=== PATIENT | male | born 1955 | race Caucasian/White ===

== ENCOUNTER 2017-12-26 10:45 | Observation (INO) | payer SELFPAY ==
[2017-12-26] VITALS (12 sets, daily range): BP systolic 158–227; BP diastolic 68–120; PULSE 55–67; RESP 16–18; TEMP 96.8–98.3; O2SAT 93–98
[~2017-12-26] VITALS: Ht 177.8 cm; Wt 147.2 kg
[~2017-12-26 10:45] MED LIST: LORT5TAB PO; Z.0.NO CURRENT MEDS
[2017-12-26] MEDS ORDERED: ASPI-516 CHEW (11:07)
[2017-12-26] MEDS ORDERED: LISI10TA3 PO (11:07)
[2017-12-26] MEDS ORDERED: ASPIRIN 81 MG CHEW TAB PO ONE (11:30)
[2017-12-26] MEDS ORDERED: SODIUM CHLORIDE 0.9% FLUSH 10 ML FLUSH IVF PRN (11:30)
[2017-12-26 11:50] LABS: AUTOMATED NEUTROPHIL # 6.9 TH/MM3 (1.8-7.7); BASOPHIL # 0.1 TH/MM3 (0-0.2); BASOPHIL % 1.3 % (0.0-2.0); EOSINOPHIL # 0.4 TH/MM3 (0-0.4); HEMATOCRIT 53.7 % (39.0-51.0); HEMOGLOBIN 18.1 GM/DL (13.0-17.0); LYMPH % 16.9 % (9.0-44.0); LYMPHOCYTE # 1.6 TH/MM3 (1.0-4.8); MEAN CELL VOLUME 94.3 FL (80.0-100.0); MEAN CORPUSCULAR HEMOGLOBIN 31.7 PG (27.0-34.0); MEAN CORPUSCULAR HGB CONC 33.6 % (32.0-36.0); MEAN PLATELET VOLUME 8.5 FL (7.0-11.0); MONO % 6.6 % (0.0-8.0); MONOCYTE # 0.6 TH/MM3 (0-0.9); NEUT % 71.2 % (16.0-70.0); PLATELET COUNT 260 TH/MM3 (150-450); RED BLOOD COUNT 5.69 MIL/MM3 (4.50-5.90); RED CELL DISTRIBUTION WIDTH 13.2 % (11.6-17.2); WHITE BLOOD COUNT 9.6 TH/MM3 (4.0-11.0)
--- NOTE | 2017-12-26 11:54 | RADRPT ---
EXAM DATE/TIME: 12/26/2017 11:39 [facility] COMPARISON: No previous studies available for comparison. INDICATIONS : Chest pain since last night. Left side numbness for a month. MEDICAL HISTORY : Hypertension. Diabetes. CVA. SURGICAL HISTORY : Appendectomy. ENCOUNTER: Initial ACUITY: 2 days PAIN SCORE: 2/10 LOCATION: Bilateral chest FINDINGS: A single view of the chest demonstrates the lungs to be symmetrically aerated without evidence of mas s, infiltrate or effusion. The cardiomediastinal contours are unremarkable. Old fractures of the rib s bilaterally. CONCLUSION: No acute disease. Christos Majano MD on December 26, 2017 at 11:49 Board Certified Radiologist. This report was verified electronically.
--- NOTE | 2017-12-26 11:55 | PD ---
HPI Chief Complaint: Chest Pain Time Seen by Provider: 11:01 Travel History International Travel<30 days: No Contact w/Intl Traveler<30days: No Traveled to known affect area: No History of Present Illness HPI Patient is a 62 year old man presenting with left sided numbness and chest pain. He describes it as a constant pressure on his left chest that does not radiate. He says this is different than the chest pain he has been having for several months which is sharp and lasts for 10-15 seconds and would occur at rest several times per day. His chest pain is worse with exertion and he is also more short of breath when at rest and with exertion. He denies a history of any previous MIs. The numbness on his entire left side started about a month and a half ago. He also feels cold on his left side. He thinks it is becoming more difficult to walk. He says that this has happened to him in 2010 when his left side became numb for about 1 year but then it resolved. He never saw a doctor during that episode. He does not have a primary care doctor and he has not had insurance which is why he doesn't seek medical care often. The only medication he takes at home is Lisinopril which he does not take regularly and a baby aspirin. Other medical history is unknown to the patient due to lack of follow up care. He has smoked a pack and a half of cigarettes per day since he was 15. He drinks 4 16 ounces beers every day. He is also complaining of left sided groin pain. He says it is worse when he bends down or when he applies pressure to the area. States his been going on for some time, no nausea no vomiting no injury reported. States symptoms are moderate, left chest, no radiation, associated signs symptoms and context as above. PFSH Past Medical History Cerebrovascular Accident: Yes (possible) Diabetes: Yes (possible) Patient Takes Glucophage: No Diminished Hearing: No Hypertension: Yes Tetanus Vaccination: Unknown Influenza Vaccination: No ?: Not Past Surgical History Appendectomy: Yes Social History Alcohol Use: Yes (4 beers/day) Tobacco Use: Yes (11/28 PPD) Substance Use: No Allergies-Medications (Allergen,Severity, Reaction): Coded Allergies: No Known Allergies (Verified Allergy, Unknown, 12/26/17) Reported Meds & Prescriptions Reported Meds & Active Scripts Active Reported Aspirin 81 Mg Chew 81 Mg CHEW DAILY Lisinopril 10 Mg Tab 10 Mg PO DAILY Review of Systems Except as stated in HPI: all other systems reviewed are Neg Physical Exam Narrative GENERAL: Patient is in no acute distress SKIN: Warm and dry. HEAD: Atraumatic. Normocephalic. EYES: Pupils equal and round. No scleral icterus. No injection or drainage. ENT: No nasal bleeding or discharge. Mucous membranes pink and moist. NECK: Trachea midline. No JVD. CARDIOVASCULAR: Regular rate and rhythm. Dorsalis pedis pulse 2+. RESPIRATORY: No accessory muscle use. Clear to auscultation. Breath sounds equal bilaterally. GASTROINTESTINAL: Abdomen soft, nondistended. Hepatic and splenic margins not palpable. Left lower groin is minimally tender to superficial palpation, no hernias felt. No rebound no percussive tenderness in the abdomen. Abdomen is obese but benign. MUSCULOSKELETAL: Extremities without clubbing, cyanosis, or edema. No obvious deformities. NEUROLOGICAL: Awake and alert. No obvious cranial nerve deficits. Motor grossly within normal limits. Five out of 5 muscle strength in the arms and legs. Normal speech. PSYCHIATRIC: Appropriate mood and affect; insight and judgment normal. Data Data Last Documented VS Vital Signs Date Time Temp Pulse Resp B/P (MAP) Pulse Ox O2 Delivery O2 Flow Rate FiO2 12/26/17 13:52 63 168/98 (121) 96 12/26/17 10:57 98.3 16 Orders Orders Electrocardiogram (12/26/17 11:16) Basic Metabolic Panel (Bmp) (12/26/17 11:16) Complete Blood Count With Diff (12/26/17 11:16) Magnesium (Mg) (12/26/17 11:16) Prothrombin Time / Inr (Pt) (12/26/17 11:16) Act Partial Throm Time (Ptt) (12/26/17 11:16) Troponin I (12/26/17 11:16) Chest, Single Ap (12/26/17 11:16) Ecg Monitoring (12/26/17 11:16) Iv Access Insert/Monitor (12/26/17 11:16) Oximetry (12/26/17 11:16) Oxygen Administration (12/26/17 11:16) Aspirin Chew (Aspirin Chew) (12/26/17 11:30) Sodium Chloride 0.9% Flush (Ns Flush) (12/26/17 11:30) Ct Brain W/O Iv Contrast(Rout) (12/26/17 ) Admit Order (Ed Use Only) (12/26/17 ) Labs Laboratory Tests Test 12/26/17 11:00 12/26/17 12:51 White Blood Count 9.6 TH/MM3 Red Blood Count 5.69 MIL/MM3 Hemoglobin 18.1 GM/DL Hematocrit 53.7 % Mean Corpuscular Volume 94.3 FL Mean Corpuscular Hemoglobin 31.7 PG Mean Corpuscular Hemoglobin Concent 33.6 % Red Cell Distribution Width 13.2 % Platelet Count 260 TH/MM3 Mean Platelet Volume 8.5 FL Neutrophils (%) (Auto) 71.2 % Lymphocytes (%) (Auto) 16.9 % Monocytes (%) (Auto) 6.6 % Eosinophils (%) (Auto) 4.0 % Basophils (%) (Auto) 1.3 % Neutrophils # (Auto) 6.9 TH/MM3 Lymphocytes # (Auto) 1.6 TH/MM3 Monocytes # (Auto) 0.6 TH/MM3 Eosinophils # (Auto) 0.4 TH/MM3 Basophils # (Auto) 0.1 TH/MM3 CBC Comment AUTO DIFF Differential Comment AUTO DIFF CONFIRMED Platelet Estimate NORMAL Platelet Morphology Comment NORMAL Erythrocyte Sedimentation Rate 1 mm/hr Prothrombin Time 10.3 SEC Prothromb Time International Ratio 1.0 RATIO Activated Partial Thromboplast Time 30.1 SEC Blood Urea Nitrogen 8 MG/DL Creatinine 0.91 MG/DL Random Glucose 125 MG/DL Calcium Level 8.4 MG/DL Magnesium Level 2.1 MG/DL Sodium Level 133 MEQ/L Potassium Level 4.3 MEQ/L Chloride Level 100 MEQ/L Carbon Dioxide Level 27.9 MEQ/L Anion Gap 5 MEQ/L Estimat Glomerular Filtration Rate 84 ML/MIN Troponin I LESS THAN 0.02 NG/ML MDM Medical Decision Making Medical Screen Exam Complete: Yes Emergency Medical Condition: Yes Differential Diagnosis ACS, AMI, chest pain, left-sided weakness, acute stroke unlikely, chronic stroke possibility, prediabetes, diabetic neuropathy. Narrative Course Patient roomed emergency department, initial workup with chest x-ray CT head EKG and blood work is unremarkable, discussed with him that given his risk factors would recommend admission for observation status to the hospital he is agreeable. Discussed with Dr. Hawthorne the symptoms including chest pain in the chronic left-sided weakness, she is agreeable for observation status. Diagnosis Primary Impression: Chest pain Additional Impression: Left-sided weakness Admitting Information Admitting Physician Requests: Observation Condition: Stable Benji Zeepda MD Dec 26, 2017 11:55
[2017-12-26 12:01] LABS: PROTHROMBIN TIME - PATIENT 10.3 SEC (9.8-11.6)
--- NOTE | 2017-12-26 12:45 | RADRPT ---
EXAM DATE/TIME: 12/26/2017 12:07 [facility] COMPARISON: No previous studies available for comparison. INDICATIONS : Left extremity weakness. RADIATION DOSE: 57.59 CTDIvol (mGy) MEDICAL HISTORY : Hypertension. SURGICAL HISTORY : None. ENCOUNTER: Initial ACUITY: 2 months PAIN SCALE: 0/10 LOCATION: cranial TECHNIQUE: Multiple contiguous axial images were obtained of the head. Using automated exposure control and adj ustment of the mA and/or kV according to patient size, radiation dose was kept as low as reasonably a chievable to obtain optimal diagnostic quality images. DICOM format image data is available electro nically for review and comparison. FINDINGS: CEREBRUM: There is mild generalized atrophy. Ventricles are normal in size. No evidence of midline shift, mass lesion, hemorrhage or acute infarction. No extra-axial fluid collections are seen. POSTERIOR FOSSA: The cerebellum and brainstem demonstrate no acute finding. The 4th ventricle is midline. The cerebe llopontine angle is unremarkable. EXTRACRANIAL: There is a partially visualized soft tissue density structure in the right maxillary antrum measuring 2.6 cm. SKULL: The calvaria is intact. No evidence of skull fracture. CONCLUSION: 1. No acute intracranial abnormality is identified. 2. Partially visualized soft tissue density structure/mass in the right maxillary sinus measuring malia roximately 2.6 cm. On an elective basis consider further evaluation of this nonacute finding with sin us CT. Reynaldo Hughes MD on December 26, 2017 at 12:41 Board Certified Radiologist. This report was verified electronically.
[2017-12-26 13:05] LABS: CHLORIDE 100 MEQ/L (98-107); SODIUM (NA) 133 MEQ/L (136-145)
[2017-12-26 13:08] LABS: BICARBONATE 27.9 MEQ/L (21.0-32.0); CALCIUM 8.4 MG/DL (8.5-10.1); GLUCOSE,RANDOM 125 MG/DL (74-106); MAGNESIUM 2.1 MG/DL (1.5-2.5)
[2017-12-26 13:09] LABS: BLOOD UREA NITROGEN 8 MG/DL (7-18)
[2017-12-26 13:12] LABS: CREATININE 0.91 MG/DL (0.60-1.30); GLOMERULAR FILTRATION RATE 84 ML/MIN (>89)
[2017-12-26 13:17] LABS: TROPONIN I LESS THAN 0.02 NG/ML (0.02-0.05)
[2017-12-26] MEDS ORDERED: NITROGLYCERIN 0.4 MG SL 25 TABS/BTL SL PRN (16:15)
[2017-12-26] MEDS ORDERED: SODIUM CHLORIDE 0.9% FLUSH 10 ML FLUSH IV FLUSH PRN (16:15)
[2017-12-26] MEDS ORDERED: ONDANSETRON HCL 4 MG/2 ML VIAL IV PUSH PRN (16:15)
[2017-12-26] MEDS ORDERED: TEMAZEPAM 15 MG CAP PO PRN (16:15)
[2017-12-26] MEDS ORDERED: ACETAMINOPHEN/HYDROcodone 325 MG/7.5 MG TAB PO PRN (16:15)
[2017-12-26] MEDS ORDERED: ACETAMINOPHEN 500 MG CPLT PO PRN (16:15)
--- NOTE | 2017-12-26 16:21 | HHI.HP ---
[facility] No Primary Care Physician Admission Diagnosis Chest Pain Diagnoses: (1) Chest pain Diagnosis: Principal (2) Left-sided weakness Diagnosis: Principal (3) Ataxia Diagnosis: Principal Chief Complaint: Chest pain Travel History International Travel<30 Days: No Contact w/Intl Traveler <30 Da: No Traveled to Known Affected Are: No History of Present Illness This is a 62 year-old male with known history of hypertension, hyperlipidemia, chronic tobacco use, daily alcohol abuse who presented to the hospital for evaluation of chest discomfort. Patient indicates that over the last couple years he is been experiencing a sharp stabbing left-sided chest pain which is worse in whenever he takes a deep breath or coughs. Patient denies any previous workup because of financial reasons. He denies any nausea, vomiting. Denies any shortness of breath. He states that cough and deep breath does exasperate the pain. He has been experiencing lightheadedness and dizziness. Patient denies any diaphoresis. Patient indicates that he has other issues such as left-sided numbness and weakness. He states that this has been going on ever since November 03, 2017. Indicates that he has been having weakness and what he described as muscle tightness on the left side of his body. He states that he has fallen multiple times at home. Patient had workup done emergency department with CT scan which did not indicate any acute intracranial abnormality. Is the patient has increased cardiac risk factors it was recommended by ER physician that the patient be observed in the chest pain center. Review of Systems Cardiovascular: COMPLAINS OF: Chest pain Neurologic: COMPLAINS OF: Abnormal gait, Localized weakness, Poor Balance Except as stated in HPI: all other systems reviewed are Neg Past Family Social History Past Medical History Hypertension Hyperlipidemia untreated Chronic tobacco use Daily alcohol use Past Surgical History Appendectomy Bilateral foot surgery Amputation of the left thumb with reattachment Reported Medications Reported Meds & Active Scripts Active Reported Aspirin 81 Mg Chew 81 Mg CHEW DAILY Lisinopril 10 Mg Tab 10 Mg PO DAILY Allergies: Coded Allergies: No Known Allergies (Verified , 07/17/11) Family History Reviewed and unremarkable Social History Patient continues smoke one half pack a cigarettes a day since he was 15 years old. Patient does drink 4 beers daily. Denies any illicit drugs Physical Exam Vital Signs Vital Signs Date Time Temp Pulse Resp B/P (MAP) Pulse Ox O2 Delivery O2 Flow Rate FiO2 12/26/17 15:56 61 16 161/91 (114) 98 Room Air 12/26/17 13:52 63 168/98 (121) 96 12/26/17 12:43 63 166/92 (116) 95 12/26/17 11:00 95 12/26/17 10:57 98.3 67 16 227/120 (155) 96 Physical Exam GENERAL: Well-developed, well-nourished, in no acute distress. alert and orientated HEENT: Head is normocephalic without any lesions or masses noted. Facial features are symmetric. Eyes: Pupils equal round reactive to light. Extraocular muscles are intact. Conjunctivae were clear. Oropharyngeal: Pharynx without any erythema edema. Tongue is midline without deviation. Buccal mucosa is moist without any masses or lesions NECK: Supple without any masses. Trachea midline no deviation. No JVD, no bruits are appreciated CARDIAC: Regular rhythm, regular rate. S1/S2 are heard. No murmurs gallops or rubs. LUNGS: Clear to auscultation bilaterally. No wheeze, rhonchi or rales. No use of accessory muscles on inspiration or expiration. ABDOMEN: Soft, nontender. Nondistended. Bowel sounds heard in all 4 quadrants. No organomegaly or masses. Negative rebound, negative guarding EXTREMITIES: No edema, pulses are equal bilaterally. No cyanosis or clubbing Laboratory Laboratory Tests Test 12/26/17 11:00 12/26/17 12:51 White Blood Count 9.6 Red Blood Count 5.69 Hemoglobin 18.1 Hematocrit 53.7 Mean Corpuscular Volume 94.3 Mean Corpuscular Hemoglobin 31.7 Mean Corpuscular Hemoglobin Concent 33.6 Red Cell Distribution Width 13.2 Platelet Count 260 Mean Platelet Volume 8.5 Neutrophils (%) (Auto) 71.2 Lymphocytes (%) (Auto) 16.9 Monocytes (%) (Auto) 6.6 Eosinophils (%) (Auto) 4.0 Basophils (%) (Auto) 1.3 Neutrophils # (Auto) 6.9 Lymphocytes # (Auto) 1.6 Monocytes # (Auto) 0.6 Eosinophils # (Auto) 0.4 Basophils # (Auto) 0.1 CBC Comment AUTO DIFF Differential Comment AUTO DIFF CONFIRMED Platelet Estimate NORMAL Platelet Morphology Comment NORMAL Prothrombin Time 10.3 Prothromb Time International Ratio 1.0 Activated Partial Thromboplast Time 30.1 Blood Urea Nitrogen 8 Creatinine 0.91 Random Glucose 125 Calcium Level 8.4 Magnesium Level 2.1 Sodium Level 133 Potassium Level 4.3 Chloride Level 100 Carbon Dioxide Level 27.9 Anion Gap 5 Estimat Glomerular Filtration Rate 84 Troponin I LESS THAN 0.02 Result Diagram: 12/26/17 1100 12/26/17 1251 Imaging Last Impressions Chest X-Ray 12/26/17 1116 Signed Impressions: Service Date/Time: Tuesday, December 26, 2017 11:39 - CONCLUSION: No acute disease. Christos Majano MD Head CT 12/26/17 0000 Signed Impressions: Service Date/Time: Tuesday, December 26, 2017 12:07 - CONCLUSION: 1. No acute intracranial abnormality is identified. 2. Partially visualized soft tissue density structure/mass in the right maxillary sinus measuring approximately 2.6 cm. On an elective basis consider further evaluation of this nonacute finding with sinus CT. Reynaldo Hughes MD Caprini VTE Risk Assessment Caprini VTE Risk Assessment: Mod/High Risk (score >= 2) Caprini Risk Assessment Model Point Value = 1 Point Value = 2 Point Value = 3 Point Value = 5 Age 41-60 Minor surgery BMI > 25 kg/m2 Swollen legs Varicose veins or History of unexplained or recurrent spontaneous Oral contraceptives or hormone replacement Sepsis (< 1 month) Serious lung disease, including pneumonia (< 1 month) Abnormal pulmonary function Acute myocardial infarction Congestive heart failure (< 1 month) History of inflammatory bowel disease Medical patient at bed rest Age 61-74 Arthroscopic surgery Major open surgery (> 45 min) Laparoscopic surgery (> 45 min) Malignancy Confined to bed (> 72 hours) Immobilizing plaster cast Central venous access Age >= 75 History of VTE Family history of VTE Factor V Leiden Prothrombin [id number] Lupus anticoagulant Anticardiolipin antibodies Elevated serum homocysteine Heparin-induced thrombocytopenia Other congenital or acquired thrombophilia Stroke (< 1 month) Elective arthroplasty Hip, pelvis, or leg fracture Acute spinal cord injury (< 1 month) Prophylaxis Regimen Total Risk Factor Score Risk Level Prophylaxis Regimen 0-1 Low Early ambulation 2 Moderate Order ONE of the following: *Sequential Compression Device (SCD) *Heparin 5000 units SQ BID 3-4 Higher Order ONE of the following medications: *Heparin 5000 units SQ TID *Enoxaparin/Lovenox 40 mg SQ daily (WT < 150 kg, CrCl > 30 mL/min) *Enoxaparin/Lovenox 30 mg SQ daily (WT < 150 kg, CrCl > 10-29 mL/min) *Enoxaparin/Lovenox 30 mg SQ BID (WT < 150 kg, CrCl > 30 mL/min) AND/OR *Sequential Compression Device (SCD) 5 or more Highest Order ONE of the following medications: *Heparin 5000 units SQ TID (Preferred with Epidurals) *Enoxaparin/Lovenox 40 mg SQ daily (WT < 150 kg, CrCl > 30 mL/min) *Enoxaparin/Lovenox 30 mg SQ daily (WT < 150 kg, CrCl > 10-29 mL/min) *Enoxaparin/Lovenox 30 mg SQ BID (WT < 150 kg, CrCl > 30 mL/min) AND *Sequential Compression Device (SCD) Assessment and Plan Assessment and Plan Chest pain, atypical Patient with increased risk factors include hypertension, hyperlipidemia, tobacco use, body habitus, age, male Thus far there is no indication of any acute coronary event We'll continue to trend cardiac enzymes to rule out any acute coronary syndrome EKG shows incomplete right bundle branch block, continue trending EKGs to evaluate for any changes If workup remains negative, will plan on nuclear stress test rule out any underlying ischemia We'll continue full dose aspirin Accelerated hypertension Continue lisinopril Clonidine as needed for blood pressure Hyperlipidemia Check lipid panel start statin if needed Left-sided weakness with difficulty ambulating, ataxia, falls at home Symptoms have been present for [address] does not indicate any acute abnormality or previous CVA We'll check MRI of brain, carotid ultrasound, echocardiogram, will obtain PT evaluation Patient has been increased to full dose aspirin DVT prevention sequential compression devices Orlando Nieves Dec 26, 2017 16:21
--- NOTE | 2017-12-26 17:16 | RADRPT ---
EXAM DATE/TIME: 12/26/2017 16:50 [facility] COMPARISON: CT BRAIN W/O CONTRAST, December 26, 2017, 12:07. INDICATIONS : Left sided weakness. MEDICAL HISTORY : Hypertension. SURGICAL HISTORY : Appendectomy. Bilat feet. ENCOUNTER: Initial ACUITY: 1 day PAIN SCORE: 0/10 LOCATION: head TECHNIQUE: Multiplanar, multisequence MRI of the brain was performed without contrast. FINDINGS: CEREBRUM: The ventricles are normal for age. No evidence of midline shift, mass lesion, hemorrhage or acute in farction. No extraaxial fluid collections are seen. The pituitary gland and suprasellar cistern are normal in configuration. WHITE MATTER: No significant signal abnormalities are seen in the white matter. POSTERIOR FOSSA: The cerebellum and brainstem are intact. The 4th ventricle is midline. The cerebellopontine angle is unremarkable. The cerebellar tonsils are normal in position. DIFFUSION IMAGING: No focal areas of restricted diffusion are seen. No evidence of acute infarction. EXTRACRANIAL: The visualized portions of the orbits are unremarkable. There is a 3.5 cm mixed mucus retention cyst or polyp in the right maxillary sinus. CONCLUSION: Intracranially normal. 3.5 cm mucus retention cyst and/or polyp in the right maxilla ry sinus. Garo Sawyer MD on December 26, 2017 at 17:10 Board Certified Radiologist. This report was verified electronically.
[2017-12-26 17:43] LABS: TROPONIN I LESS THAN 0.02 NG/ML (0.02-0.05)
[2017-12-26 20:31] LABS: TROPONIN I LESS THAN 0.02 NG/ML (0.02-0.05)
[2017-12-26] MEDS ORDERED: SODIUM CHLORIDE 0.9% FLUSH 10 ML FLUSH IV FLUSH SCH (21:00)
[2017-12-26] MEDS: cloNIDine HCL 0.1 MG TAB PO PRN (23:02)
[2017-12-27] VITALS: BP 204/98; PULSE 59; RESP 18; TEMP 96.2; O2SAT 93
--- NOTE | 2017-12-27 00:12 | EKG ---
Date Performed: 12/26/2017 Time Performed: 10:52:35 PTAGE: 62 years EKG: Sinus rhythm INCOMPLETE RIGHT BUNDLE BRANCH BLOCK BORDERLINE ECG INTERPRETATION BASED ON A DEFAULT AGE OF 40 YEAR S NO PREVIOUS TRACING DOCTOR: Robert Dyer Interpretating Date/Time 12/27/2017 00:10:45
[2017-12-27 01:00] VITALS: BP 161/86
[2017-12-27 04:00] VITALS: BP 181/95; PULSE 60; RESP 18; TEMP 97.3; O2SAT 92
[2017-12-27] MEDS: cloNIDine HCL 0.1 MG TAB PO PRN (04:44)
[2017-12-27 06:37] LABS: AUTOMATED NEUTROPHIL # 5.2 TH/MM3 (1.8-7.7); BASOPHIL # 0.1 TH/MM3 (0-0.2); BASOPHIL % 0.7 % (0.0-2.0); EOSINOPHIL # 0.5 TH/MM3 (0-0.4); EOSINOPHIL % 6.6 % (0.0-4.0); HEMATOCRIT 48.7 % (39.0-51.0); HEMOGLOBIN 16.3 GM/DL (13.0-17.0); LYMPH % 20.2 % (9.0-44.0); LYMPHOCYTE # 1.6 TH/MM3 (1.0-4.8); MEAN CELL VOLUME 95.2 FL (80.0-100.0); MEAN CORPUSCULAR HEMOGLOBIN 31.8 PG (27.0-34.0); MEAN CORPUSCULAR HGB CONC 33.4 % (32.0-36.0); MEAN PLATELET VOLUME 8.4 FL (7.0-11.0); MONO % 9.1 % (0.0-8.0); MONOCYTE # 0.7 TH/MM3 (0-0.9); NEUT % 63.4 % (16.0-70.0); PLATELET COUNT 233 TH/MM3 (150-450); RED BLOOD COUNT 5.12 MIL/MM3 (4.50-5.90); RED CELL DISTRIBUTION WIDTH 13.9 % (11.6-17.2); WHITE BLOOD COUNT 8.1 TH/MM3 (4.0-11.0)
[2017-12-27 06:44] LABS: CALCIUM 8.6 MG/DL (8.5-10.1)
[2017-12-27 06:45] LABS: BICARBONATE 30.9 MEQ/L (21.0-32.0)
[2017-12-27 06:48] LABS: CREATININE 0.98 MG/DL (0.60-1.30)
[2017-12-27 08:00] VITALS: BP 147/88; PULSE 57; RESP 16; TEMP 96.9; O2SAT 94
[2017-12-27] MEDS ORDERED: ASPIRIN 325 MG TAB PO SCH (09:00)
[2017-12-27 09:32] LABS: CHOLESTEROL/ HDL RATIO 2.81 RATIO
--- NOTE | 2017-12-27 09:38 | EKG ---
Date Performed: 12/26/2017 Time Performed: 17:08:57 PTAGE: 62 years EKG: Sinus rhythm INCOMPLETE RIGHT BUNDLE BRANCH BLOCK BORDERLINE ECG Since the prior tracing, there has been no signi ficant change PREVIOUS TRACING : 12/26/2017 10.52 DOCTOR: Robert Maria Interpretating Date/Time 12/27/2017 09:37:51
--- NOTE | 2017-12-27 09:38 | EKG ---
Date Performed: 12/26/2017 Time Performed: 19:37:15 PTAGE: 62 years EKG: SINUS BRADYCARDIA INCOMPLETE RIGHT BUNDLE BRANCH BLOCK BORDERLINE ECG Since the prior meeta ng, there has been no significant change PREVIOUS TRACING : 12/26/2017 17.08 DOCTOR: Robert Maria Interpretating Date/Time 12/27/2017 09:37:42
--- NOTE | 2017-12-27 09:49 | RADRPT ---
EXAM DATE/TIME: 12/27/2017 08:52 [facility] COMPARISON: No previous studies available for comparison. INDICATIONS : Ataxia. MEDICAL HISTORY : Hypercholesterolemia. Gastroesophageal reflux disease. Hypertension. CVA. Syncope. Numbness. Weakness . Chest pain. Gait problems. Dsypnea. Tobacco use. SURGICAL HISTORY : Appendectomy. Orthopedic surgery, bilateral feet and right thumb. Blood transfusions. ENCOUNTER: Initial ACUITY: 2 months PAIN SCORE: 5/10 LOCATION: Bilateral neck PEAK SYSTOLIC VELOCITIES (cm/sec): ICA/CCA RATIO: Right: 1.2 Left: 1.4 ICA: Right: 96 Left: 92 CCA: Right: 81 Left: 67 ECA: Right: 100 Left: 160 VERTEBRAL: Right: 75 antegrade Left: 75 antegrade Elevated flow velocities and ICA/CCA ratios have been found to correlate with increased degrees of vessel stenosis, calculated as percentage of diameter relative to a normal segment of distal ICA/CCA FINDINGS: RIGHT CAROTID: No significant stenosis is visualized. Calcified plaque. The waveforms are within normal limits. LEFT CAROTID: No significant stenosis is visualized. Calcified plaque. The waveforms are within normal limits. VERTEBRAL ARTERIES: Antegrade flow is seen in both vertebral arteries. MISCELLANEOUS: None. CONCLUSION: No hemodynamically significant stenosis in either carotid artery. Christos Majano MD on December 27, 2017 at 9:46 Board Certified Radiologist. This report was verified electronically.
[2017-12-27 09:54] LABS: FOLATE 11.5 NG/ML (3.1-17.5)
[2017-12-27] MEDS ORDERED: REGADENOSON INJ 0.4 MG/5 ML SYR IV ONE (10:55)
[2017-12-27 12:00] VITALS: BP 145/90; PULSE 57; RESP 18; TEMP 96.8; O2SAT 94
--- NOTE | 2017-12-27 13:17 | RADRPT ---
EXAM DATE/TIME: 12/27/2017 10:44 [facility] COMPARISON: No previous studies available for comparison. INDICATIONS : Left sided chest pain. Angina. DOSE: 35 mCi Tc99m Myoview at stress. 11 mCi Tc99m Myoview at rest. 0.4 mg Lexiscan STRESS SYMPTOMS: Short of breath. EJECTION FRACTION: 68% MEDICAL HISTORY : Hypertension. SURGICAL HISTORY : Appendectomy. Bilateral foot. ENCOUNTER: Initial ACUITY: 3 months PAIN SCALE: 6/10 LOCATION: Left chest TECHNIQUE: The patient underwent pharmacologic stress with infusion of prescribed dose. Continuous ECG tracing was monitored during stress. Gated SPECT imaging was performed after stress and conventional SPECT i maging was performed at rest. The examination was performed on a SPECT/CT scanner, both attenuation and non-corrected datasets were reviewed. FINDINGS: DISTRIBUTION: The maximum perfused segment at stress is in the anterior lateral wall. PERFUSION STUDY: The pattern of perfusion at stress is within normal limits. GATED STUDY: There is intact wall motion and thickening without hypokinetic or dyskinetic segments. CONCLUSION: 1. Normal wall motion calculated ejection fraction. 2. No fixed or reversible wall defects to suggest ischemia or infarction. RISK CATEGORY: Low (<1% Annual Mortality Rate) Jorge Street MD on December 27, 2017 at 13:07 Board Certified Radiologist. This report was verified electronically.
--- NOTE | 2017-12-27 13:41 | HHI.PR ---
Subjective Remarks Patient seen and examined today for follow-up on chest pain. Patient lying in bed comfortable undergoing carotid ultrasound. Patient denies any recurrent chest pain. Denies any new complaints. Afebrile. Objective Vital Signs Date Time Temp Pulse Resp B/P (MAP) Pulse Ox O2 Delivery O2 Flow Rate FiO2 12/27/17 08:00 96.9 57 16 147/88 (107) 94 12/27/17 04:00 97.3 60 18 181/95 (123) 92 12/27/17 01:00 161/86 (111) 12/27/17 00:00 96.2 59 18 204/98 (133) 93 12/26/17 22:04 96.8 56 18 211/98 (135) 93 12/26/17 21:45 55 12/26/17 21:10 12/26/17 21:05 56 16 165/81 (109) 95 Room Air 12/26/17 20:10 58 16 158/68 (98) 95 Room Air 12/26/17 19:10 57 16 198/93 (128) 95 Room Air 12/26/17 19:05 57 14 12/26/17 17:30 62 162/88 (112) 95 12/26/17 17:18 96 21 12/26/17 15:56 61 16 161/91 (114) 98 Room Air 12/26/17 13:52 63 168/98 (121) 96 I/O 12/26/17 12/26/17 12/26/17 12/27/17 12/27/17 12/27/17 07:00 15:00 23:00 07:00 15:00 23:00 Intake Total 0 ml Balance 0 ml Intake Oral 0 ml # Voids 2 Result Diagram: 12/27/17 0547 12/27/17 0547 Imaging Last Impressions Myocardial Perfusion Scan Nuc Med 12/27/17 0600 Signed Impressions: Service Date/Time: Wednesday, December 27, 2017 10:44 - CONCLUSION: 1. Normal wall motion calculated ejection fraction. 2. No fixed or reversible wall defects to suggest ischemia or infarction. RISK CATEGORY: Low (<1%% Annual Mortality Rate) Jorge Street MD Carotid Artery Ultrasound 12/27/17 0000 Signed Impressions: Service Date/Time: Wednesday, December 27, 2017 08:52 - CONCLUSION: No hemodynamically significant stenosis in either carotid artery. Christos Majano MD Chest X-Ray 12/26/17 1116 Signed Impressions: Service Date/Time: Tuesday, December 26, 2017 11:39 - CONCLUSION: No acute disease. Christos Majano MD Head CT 12/26/17 0000 Signed Impressions: Service Date/Time: Tuesday, December 26, 2017 12:07 - CONCLUSION: 1. No acute intracranial abnormality is identified. 2. Partially visualized soft tissue density structure/mass in the right maxillary sinus measuring approximately 2.6 cm. On an elective basis consider further evaluation of this nonacute finding with sinus CT. Reynaldo Hughes MD Brain MRI 12/26/17 0000 Signed Impressions: Service Date/Time: Tuesday, December 26, 2017 16:50 - CONCLUSION: Intracranially normal. 3.5 cm mucus retention cyst and/or polyp in the right maxillary sinus. Garo Sawyer MD Procedures Echocardiogram Objective Remarks GENERAL: Well-developed, well-nourished, in no acute distress. alert and orientated HEENT: Head is normocephalic without any lesions or masses noted. Facial features are symmetric. Eyes: Extraocular muscles are intact. Conjunctivae were clear. NECK: Supple without any masses. Trachea midline no deviation. No JVD, no bruits are appreciated CARDIAC: Regular rhythm, regular rate. S1/S2 are heard. No murmurs gallops or rubs. LUNGS: Clear to auscultation bilaterally. No wheeze, rhonchi or rales. No use of accessory muscles on inspiration or expiration. ABDOMEN: Soft, nontender. Nondistended. Bowel sounds heard in all 4 quadrants. No organomegaly or masses. Negative rebound, negative guarding EXTREMITIES: No edema, pulses are equal bilaterally. No cyanosis or clubbing A/P Assessment and Plan Chest pain, atypical Patient with increased risk factors include hypertension, hyperlipidemia, tobacco use, body habitus, age, male Thus far there is no indication of any acute coronary event, serial cardiac enzymes have remained negative EKG shows incomplete right bundle branch block, serial EKGs do not show any acute changes Nuclear stress test performed which did not indicate any ischemia Continue full dose aspirin Accelerated hypertension Continue lisinopril Add Norvasc 10 mg daily Clonidine as needed for blood pressure Hyperlipidemia LDL 91 start statin if needed Left-sided weakness with difficulty ambulating, ataxia, falls at home Symptoms have been present for [address] does not indicate any acute abnormality or previous CVA MRI brain did not indicate any acute abnormality carotid ultrasound does not indicate any hemodynamically significant stenosis echocardiogram, and indicated normal left ventricular size, ejection fraction 60-65%. Trace mitral valve regurgitation. Normal pulmonary pressures PT evaluation recommend patient have home with home health PT versus home with outpatient PT, bariatric front wheel walker Continue full dose aspirin DVT prevention sequential compression devices Discharge Planning Discharge home in stable condition Activity: Ad ciro. Diet: Healthy heart diet Medications per medication reconciliation Follow-up primary medical doctor in one week Orlando Nieves Dec 27, 2017 13:40
[2017-12-27] MEDS ORDERED: ASA325 PO (13:43)
[2017-12-27] MEDS ORDERED: WALKER WHEELS/F1 MIS (13:43)
[2017-12-27] MEDS ORDERED: LISI10TA3 PO (13:43)
[2017-12-27] MEDS ORDERED: AMLO10 PO (13:43)
--- NOTE | 2017-12-27 13:44 | HHI.DCPOC ---
Discharge Care Plan Diagnosis: (1) Chest pain (2) Left-sided weakness Goals to Promote Your Health * To prevent worsening of your condition and complications * To maintain your health at the optimal level Directions to Meet Your Goals Take your medications as prescribed Follow your dietary instruction Follow activity as directed Keep your appointments as scheduled Take your immunizations and boosters as scheduled If your symptoms worsen call your PCP, if no PCP go to Urgent Care Center or Emergency Room Smoking is Dangerous to Your Health. Avoid second hand smoke Call the 24-hour hour crisis hotline for domestic abuse at Orlando Nieves Dec 27, 2017 13:44
[2017-12-27] MEDS ORDERED: LISINOPRIL 10 MG TAB PO SCH (13:45)
--- NOTE | 2017-12-27 14:37 | ECHRPT ---
Indication: CVA/TIA CONCLUSIONS Normal left ventricular size. Upper normal wall thickness. The left ventricular systolic function is normal with an estimated ejection fraction in the range of 60-65%. No definite regional wall motion abnormalities. Trace mitral valve regurgitation. There is trace tricuspid valve regurgitation. Normal estimated pulmonary pressures. BP: 181 / 95 HR: 60 Rhythm: Atrial fibrillation MEASUREMENTS (Male / Female) Normal Values Technical Quality:Poor 2D ECHO LV Diastolic Diameter PLAX 4.0 cm 4.2 - 5.9 / 3.9 - 5.3 cm LV Systolic Diameter PLAX 2.9 cm IVS Diastolic Thickness 1.5 cm 0.6 - 1.0 / 0.6 - 0.9 cm LVPW Diastolic Thickness 1.5 cm 0.6 - 1.0 / 0.6 - 0.9 cm LV Relative Wall Thickness 0.7 RV Internal Dim ED PLAX 2.8 cm LVOT Diameter 2.2 cm Aortic Root Diameter 3.3 cm LA Systolic Diameter LX 3.2 cm 3.0 - 4.0 / 2.7 - 3.8 cm DOPPLER LVOT Peak Velocity 120.0 cm/s LVOT Peak Gradient 5.8 mmHg LVOT Velocity Time Integral 32.0 cm LVOT Cardiac Index 2635.5 cm/minm Mitral E Point Velocity 55.3 cm/s Mitral A Point Velocity 71.6 cm/s Mitral E to A Ratio 0.8 LV E' Lateral Velocity 6.2 cm/s Mitral E to LV E' Lateral Ratio 8.9 LV E' Septal Velocity 4.5 cm/s Mitral E to LV E' Septal Ratio 12.3 TR Peak Velocity 10.0 cm/s TR Peak Gradient 0.0 mmHg PV Peak Velocity 75.9 cm/s PV Peak Gradient 2.3 mmHg FINDINGS LEFT VENTRICLE Normal left ventricular size. Upper normal wall thickness. The left ventricular systolic function is normal with an estimated ejection fraction in the range of 60-65%. No definite regional wall motion abnormalities. RIGHT VENTRICLE Normal right ventricular size and systolic function. LEFT ATRIUM The left atrial size is normal. RIGHT ATRIUM The right atrial size is normal. ATRIAL SEPTUM No atrial level shunt is demonstrated by color flow Doppler interrogation. AORTA The aortic root and proximal ascending aorta are normal in size on limited imaging. MITRAL VALVE Structurally normal mitral valve. Trace mitral valve regurgitation. AORTIC VALVE The aortic valve is not well visualized. No aortic valve regurgitation. TRICUSPID VALVE There is trace tricuspid valve regurgitation. Normal estimated pulmonary pressures. PULMONARY VALVE No pulmonary valve regurgitation or stenosis. VESSELS The inferior vena cava was not well visualized. PERICARDIUM No pericardial effusion. Luis Martinez MD (Electronically Signed) Final Date:27 December 2017 14:36
--- NOTE | 2017-12-28 10:57 | TR ---
Date Performed: 12/27/2017 Time Performed: 11:17:58 DOCTOR: Luiz Burnett DRUG LIST: CLINICAL HISTORY: REASON FOR TEST: REASON FOR ENDING: OBSERVATION: CONCLUSION: Lexiscan stress test was performed under standard four minute protocol. Radionuclid e was injected one minute prior to ending the test. No electrocardiographic abormalities were present to suggest ischemia. Nuclear imaging and interpretation are pending. COMMENTS:
== END 2017-12-27 16:48 | disposition home or self-care (01) ==
LOC: PHED 10:45 → PHEDA 15:16 → PH3A 21:15
PROVIDERS: ADMIT Hospitalist; ATTEND Hospitalist
DX: R07.89 Other chest pain (principal); R53.1 Weakness; I10 Essential (primary) hypertension; E78.5 Hyperlipidemia, unspecified; E11.9 Type 2 diabetes mellitus without complications; I45.10 Unspecified right bundle-branch block; R27.0 Ataxia, unspecified; R55 Syncope and collapse; Z72.0 Tobacco use; R29.6 Repeated falls
CPT/HCPCS: 70450; 70551; 71045; 78452; 80048; 80061; 82550; 82552; 82607; 82746; 83735; 84443; 84484; 85025; 85610; 85652; 85730; 86592; 93005; 93017; 93306; 93880; 97162; 99285; A9502; G0378; G8987; G8988; J2785